=== PATIENT | female | born 1980 | race Caucasian/White ===

== ENCOUNTER 2017-08-27 12:02 | Inpatient (IN) | payer MEDICAID ==
[2017-08-27] VITALS (7 sets, daily range): BP systolic 133–147; BP diastolic 76–88
[~2017-08-27] VITALS: Ht 167.6 cm; Wt 81.6 kg
--- NOTE | 2017-08-27 12:02 | NUR ---
No ER beds available upon pt's arrival. Pt in room 1b was moved to ER waiting room and this pt was brought back to room 1b as soon as room was ready after cleaning. EKG was also delayed by a few minutes due to EKG machine malfunction (interference). EKG was done luz and handed to .
--- NOTE | 2017-08-27 12:02 | NUR ---
Michelle trevinoclaudia in EDM - 08/27/17 at 1308 by BETTIE No ER beds available upon pt's arrival. Pt is room 1b was moved to ER waiting room and pt was brought back to room 1b as soon as room was ready after cleaning. EKG was also delayed by a few minutes due to EKG machine malfunction (interference). EKG was done luz and handed to .
--- NOTE | 2017-08-27 12:06 | NUR ---
PT IS IN ROOM #1B. DR LENZ EVALUATED THE PT.
[2017-08-27] MEDS ORDERED: NORCO (12:17)
[2017-08-27 12:44] LABS: BASOPHILS # (AUTO) 0.1 K/uL (0.0-8.0); BASOPHILS % (AUTO) 1.3 % (0.0-2.0); EOSINOPHILS % (AUTO) 0.7 % (0.0-7.0); HEMOGLOBIN 9.3 g/dL (10.9-14.3); LYMPHOCYTES # (AUTO) 1.4 K/uL (20.0-40.0); LYMPHOCYTES % (AUTO) 19.3 % (20.5-51.5); MEAN CORPUSCULAR HEMOGLOBIN 32.3 uug (24.7-32.8); MEAN CORPUSCULAR HGB CONC 34 g/dL (32.3-35.6); MONOCYTES # (AUTO) 0.4 K/uL (2.0-10.0); MONOCYTES % (AUTO) 6.3 % (0.0-11.0); NEUTROPHILS # (AUTO) 5.1 K/uL (1.8-8.9); NEUTROPHILS % (AUTO) 72.4 % (38.5-71.5); PLATELET COUNT (AUTO) 125 K/uL (179-408); RED BLOOD CELL COUNT(AUTO) 2.87 MIL/uL (3.63-4.92); WHITE BLOOD COUNT (AUTO) 7.1 K/uL (3.8-11.8)
[2017-08-27 12:55] LABS: CREATININE 0.6 mg/dL (0.6-1.3)
[2017-08-27 13:06] LABS: ABG BASE EXCESS -0.9 mmol/L; ABG HCO3 21.2 mmol/L; ABG PCO2 26.5 mmHg (35.0-45.0); ABG PH 7.521 (7.350-7.450); ABG SITE RIGHT RADIAL; ABG TOTAL HEMOGLOBIN 9.3 G/dL (12.0-16.0); COHb 1.7 % (0.5-1.5); MetHb 0.4 % (0.0-1.5); VENT MODE ROOM AIR
[2017-08-27 13:11] LABS: BILIRUBIN,TOTAL 0.3 mg/dL (0.2-1.0); TOTAL PROTEIN, SERUM 5.7 g/dL (6.4-8.2)
[2017-08-27] MEDS ORDERED: IOHEXOL 350 100 ML INFUS..BTL ONE (13:13)
[2017-08-27] MEDS ORDERED: IV NORMAL SALINE 100 ML ONE (13:13)
[2017-08-27] MEDS ORDERED: SWABABLE VALVE TRANSFER SET EA MC ONE (13:13)
[2017-08-27] MEDS ORDERED: FUROSEMIDE 40 MG/4 ML VIAL ONE (14:04)
[2017-08-27] MEDS ORDERED: IPRATROPIUM BROMIDE 0.5 MG/2.5 ML NEBU NEB ONE (14:07)
[2017-08-27] MEDS ORDERED: ALBUTEROL SULFATE 2.5 MG/3 ML NEBU NEB ONE (14:15)
[2017-08-27] MEDS ORDERED: methylPREDNISolone SOD SUCC 125 MG/2 ML VIAL IV ONE (14:15)
[2017-08-27] MEDS ORDERED: CEFTRIAXONE 1 G in IV DEXTROSE 5% 50 ML IV ONE (14:15)
[2017-08-27] MEDS ORDERED: FUROSEMIDE 20 MG/2 ML VIAL IV ONE (14:15)
[2017-08-27] MEDS ORDERED: methylPREDNISolone SOD SUCC 125 MG/2 ML VIAL ONE (14:22)
[2017-08-27] MEDS ORDERED: CEFTRIAXONE 1 G VIAL ONE (14:22)
[2017-08-27] MEDS ORDERED: ALBUTEROL SULFATE 2.5 MG/3 ML NEBU ONE (14:23)
[2017-08-27] MEDS ORDERED: IPRATROPIUM BROMIDE 0.5 MG/2.5 ML NEBU ONE (14:23)
[2017-08-27 15:37] LABS: ABG BASE EXCESS 0.6 mmol/L; ABG HCO3 22.8 mmol/L; ABG PCO2 28.5 mmHg (35.0-45.0); ABG PO2 82.2 mmHg (75.0-100.0); ABG SITE RIGHT RADIAL; ABG TOTAL HEMOGLOBIN 10.7 G/dL (12.0-16.0); COHb 0.9 % (0.5-1.5); MetHb 0.2 % (0.0-1.5); O2Hb 94.7 % (94.0-97.0)
--- NOTE | 2017-08-27 17:04 | NUR ---
PT WAS TRANSFERED TO CCU ROOM #1. REPORT WAS GIVEN TO CCU RN.
[2017-08-27] MEDS ORDERED: ONDANSETRON 4 MG/2 ML VIAL IV PRN (17:30)
[2017-08-27] MEDS ORDERED: HYDROCODONE/APAP 5-325MG TABLET PO PRN (17:30)
[2017-08-27] MEDS ORDERED: ZOLPIDEM 5 MG TABLET PO PRN (17:30)
[2017-08-27] MEDS ORDERED: MAGNESIUM HYDROXIDE 30 ML LIQUID UDC PO PRN (17:30)
[2017-08-27] MEDS ORDERED: Z GUARD REMEDY PASTE 57 GM TUBE TOP PRN (17:30)
[2017-08-27] MEDS ORDERED: ACETAMINOPHEN 325 MG TABLET PO PRN (17:30)
--- NOTE | 2017-08-27 17:30 | NUR ---
DOCTOR BALTAZAR IN THE UNIT TO SEE PATIENT.
[2017-08-27] MEDS: FUROSEMIDE 40 MG/4 ML VIAL IV SCH ×2 (18:32→20:21)
[2017-08-27] MEDS: ENOXAPARIN SODIUM 40 MG/0.4 ML DISP.SYRIN SQ SCH (18:35)
--- NOTE | 2017-08-27 18:40 | NUR ---
CALLED [employer] MACHINE SERVICER TO INFORM DR BALTAZAR CONSULTED PATIENT AND TO COME SEE PATIENT TODAY. ECHO ALREADY DONE.
--- NOTE | 2017-08-27 19:30 | NUR ---
ROUNDS MADE PATIENT IN BED AAOX4/MAEX4.ON NON REBREATHER MASK AT 15 LITERS SATURATION 100% RR 20 ,NO RESPIRATORY DISTRESS NOTED , BREATHING EVEN AND UNLABORED . DENIES PAIN AND DISCOMFORT, SR TO SB ON THE HEART MONITOR . CONTINUE TO MONITOR LEVELS OF COMFORT.AFEBRILE .
--- NOTE | 2017-08-27 20:30 | NUR ---
PATIENT CAME AND VISITED PATIENT .
[2017-08-28] VITALS (16 sets, daily range): BP systolic 107–136; BP diastolic 37–85
--- NOTE | 2017-08-28 00:15 | NUR ---
DEANDRE CRAVEN CALLED AND DICTATED TROPONIN LEVELS DICTATED THE 3 SERIES RESULT AND THE LATEST ONE 0.265 NO ORDER MADE . PATIENT HAD EKG DONE SB WITH SHORT CO INTERVAL NO CHEST PAIN NOTED OR VERBALIZED . CONTINUE TO MONITOR V/S AND LEVELS OF PAIN .
--- NOTE | 2017-08-28 02:13 | NUR ---
GIVEN TYLENOL PER PATIENT REQUEST C/O 8 OVER PAOIN PAIN ABDOMEN AREA C SECTION SITE ,CHECKED POSTOP SITE CDI .PATIENT ABLE TO TAKE TYLENOL WITH A WATER ,
[2017-08-28 05:25] LABS: BASOPHILS % (AUTO) 0.2 % (0.0-2.0); EOSINOPHILS % (AUTO) 0.1 % (0.0-7.0); HEMATOCRIT 27.7 % (31.2-41.9); HEMOGLOBIN 9.5 g/dL (10.9-14.3); LYMPHOCYTES # (AUTO) 1.3 K/uL (20.0-40.0); LYMPHOCYTES % (AUTO) 16.5 % (20.5-51.5); MEAN CORPUSCULAR HGB CONC 35 g/dL (32.3-35.6); MEAN CORPUSCULAR VOLUME 92.8 fL (75.5-95.3); MONOCYTES # (AUTO) 0.6 K/uL (2.0-10.0); MONOCYTES % (AUTO) 7.7 % (0.0-11.0); NEUTROPHILS # (AUTO) 6.1 K/uL (1.8-8.9); NEUTROPHILS % (AUTO) 75.5 % (38.5-71.5); PLATELET COUNT (AUTO) 164 K/uL (179-408); RED BLOOD CELL COUNT(AUTO) 2.98 MIL/uL (3.63-4.92)
[2017-08-28 05:44] LABS: BILIRUBIN,TOTAL 0.4 mg/dL (0.2-1.0); CREATININE 0.7 mg/dL (0.6-1.3); MAGNESIUM 1.6 mg/dL (1.8-2.4); PHOSPHOROUS 5.5 mg/dL (2.5-4.9); POTASSIUM 3.5 mmol/L (3.5-5.1); TOTAL PROTEIN, SERUM 5.9 g/dL (6.4-8.2)
[2017-08-28 05:45] LABS: THYROID STIMULATING HORMONE 0.836 mIU/mL (0.358-3.740)
--- NOTE | 2017-08-28 07:30 | NUR ---
PATIENT WAS PROVIDED BREAST PUMP AND WARM PACKS FOR .
--- NOTE | 2017-08-28 08:00 | NUR ---
DOCTOR BALTAZAR IN UNIT TO SEE PATIENT. WAITING FOR CARDIOLOGY CONSULT. PATIENT DOING MUCH BETTER. DECREASED SHORTNESS OF BREATH, WILL TITRATE DOWN O2, BREATHING IS NON- LABORED. ADJUSTED PAIN MEDICATION TO IBUPROFEN PER PATIENT REQUEST.
[2017-08-28] MEDS ORDERED: PETROLATUM,WHITE JELLY 28.35 GM TUBE TP PRN (08:45)
[2017-08-28] MEDS: FUROSEMIDE 40 MG/4 ML VIAL IV SCH ×2 (09:13→21:24)
[2017-08-28] MEDS ORDERED: IBUPROFEN 400 MG TABLET PO PRN (09:15)
[2017-08-28] MEDS ORDERED: ACYCLOVIR 5% OINT 15 GM TUBE TP PRN (17:00)
[2017-08-28] MEDS ORDERED: DOCOSANOL 2 GM CREAM TP PRN (17:00)
[2017-08-28] MEDS: MAGNESIUM SULFATE/D5W 100 ML IV SCH ×2 (17:01→18:13)
[2017-08-28] MEDS: ENOXAPARIN SODIUM 40 MG/0.4 ML DISP.SYRIN SQ SCH (17:02)
[2017-08-29] VITALS: BP 113/75
[2017-08-29 04:00] VITALS: BP 117/88
--- NOTE | 2017-08-29 06:00 | NUR ---
No respiratory distress noted throughout the night. Kim catheter noted to be draining. No c/o pain at this time. Aware of plan of care. Safety measures provided. Will endorse accordingly.
[2017-08-29 07:05] LABS: CREATININE 0.6 mg/dL (0.6-1.3); MAGNESIUM 2.1 mg/dL (1.8-2.4); POTASSIUM 3.9 mmol/L (3.5-5.1)
--- NOTE | 2017-08-29 07:49 | NUR ---
Awake, alert, oriented x 4, comfortable, verbalized that she had a good sleep. Requested to be off O2, will check O2 sat RA. Micki pads provided as requested
[2017-08-29] MEDS ORDERED: LISINOPRIL 5 MG TABLET PO SCH (09:00)
[2017-08-29] MEDS ORDERED: FUROSEMIDE 40 MG/4 ML VIAL IV SCH (09:00)
--- NOTE | 2017-08-29 10:02 | NUR ---
Kim catheter removed. Ambulated in the hallway with nursing. O2 sat RA at rest 95%, post ambulation 97%, not in distress.
[2017-08-29 11:40] VITALS: BP 113/75
--- NOTE | 2017-08-29 14:10 | NUR ---
Voided freely after removal of catheter. With discharge order to home. Tele removed. Saline lock removed. Prescription instructed by Pharmacist. DC Instruction given to patient, emphasize regarding follow up with PCP and Family Readiness Support Assistant. Gayle MOSER gave resources where to go for follow up, verbalized understanding. Discharged per wheelchair in fair condition, not in distress, afebrile, accompanied by spouse
== END 2017-08-29 14:15 | disposition home or self-care (01) | DRG 561 ==
LOC: ER 12:08 → CCU 16:41 → TELE 08-28 17:33 → MED 08-29 10:27
PROVIDERS: ADMIT Internal Medicine; ATTEND Internal Medicine
DX: O90.3 Peripartum cardiomyopathy (principal); I21.A1 Myocardial infarction type 2; I50.21 Acute systolic (congestive) heart failure; E87.3 Alkalosis; E46 Unspecified protein-calorie malnutrition; I27.20 Pulmonary hypertension, unspecified; D62 Acute posthemorrhagic anemia; E87.1 Hypo-osmolality and hyponatremia; E83.42 Hypomagnesemia; I08.1 Rheumatic disorders of both mitral and tricuspid valves; Z85.3 Personal history of malignant neoplasm of breast; Z92.21 Personal history of antineoplastic chemotherapy; E78.5 Hyperlipidemia, unspecified; O72.3 Postpartum coagulation defects; R74.0 Nonspecific elevation of levels of transaminase and lactic acid dehydrogenase [LDH]; Z87.891 Personal history of nicotine dependence; Z80.3 Family history of malignant neoplasm of breast; R73.03 Prediabetes; Z92.3 Personal history of irradiation
CPT/HCPCS: 36415; 36600; 70030-TC; 71045; 71275; 83735; 84100; 84443; 84703; 85025; 85610; 87040; 93005; 93307; A4663; J0696; J1650; J1940; J2930; J3475; J3490; J3590; J7030; Q9967